=== PATIENT | female | born 1965 | race Caucasian/White ===

== ENCOUNTER → 2017-01-26 | Outpatient (CLI) | payer OTHER ==
[~2017-01-26] MED LIST: OMEPRAZOLE20 MG PO
[2017-01-26 12:08] LABS: BUN/CREATININE RATIO 16 (0-10)
== END ==
LOC: LAB 10:46
PROVIDERS: Psychiatry & Neurology Neurology
DX: R25.2 Cramp and spasm (principal); I10 Essential (primary) hypertension
CPT/HCPCS: 36415; 80053; 80061; 82085; 82330; 82550; 83970

== ENCOUNTER → 2017-02-26 | Outpatient (CLI) | payer OTHER | LOC: HEART 5 11:29 | DX: R00.2 Palpitations (principal) | CPT/HCPCS: 93306 ==

== ENCOUNTER → 2017-03-05 | Outpatient (CLI) | payer OTHER | LOC: HEART 5 09:57 | DX: R00.0 Tachycardia, unspecified (principal); R42 Dizziness and giddiness ==